=== PATIENT | male | born 1995 | race Two or more races ===

== ENCOUNTER 2024-03-27 12:29 | Emergency (ER) | payer SELFPAY ==
[2024-03-27 12:32] VITALS: BMI 29.0
[2024-03-27 13:30] VITALS: BP 133/78; PULSE 72; RESP 18; TEMP 36.9; O2SAT 99
--- NOTE | 2024-03-27 13:40 | XR_ITS ---
Examination: Knee, left , 3 views Technique: Knee AP, lateral, oblique 3 views Date and time of exam: March 27, 2024 at 1408 hours INDICATIONS: Patient slipped and fell at work today with injury to the knee, knee pain. FINDINGS: No fracture or dislocation Mild narrowing medial joint space IMPRESSION: No fracture or dislocation
--- NOTE | 2024-03-27 13:40 | XR_ITS ---
Examination: AP pelvis single view TECHNIQUE: AP portable supine pelvis single view Exam date and time: March 27, 2024 1414 hours INDICATIONS: Right iliac pelvic pain today FINDINGS: Hips and bones of the pelvis appear intact No hip dislocations No foreign bodies IMPRESSION: No fracture is identified
--- NOTE | 2024-03-27 13:41 | EDNOTE_ITS ---
<Statement entered by Kallie Bradshaw MD - 03/31/24 07:15> As co-signing physician, I was present and available for consult prn. I concur with the plan and care as documented by the midlevel provider. ED Fall Injury RME/HPI General Chief Complaint: Fall Stated Complaint: FALL AT WORK, RIGHT HIP PAIN, LEFT KNEE PAIN Time Seen by Provider: 03/27/24 13:13 Arrival date/time: 03/27/24 12:29 RME / HPI RME / HPI Narrative: 28-year-old male patient came in for evaluation regarding fall. Patient was working as a [employer] worker, accidentally fell ground-level, resulting into pain to the left anterior knee, and right iliac area. Patient is ambulatory. Incident happened about 1 hour prior to ER visit. Denies any LOC. Related Data Previous Rx's ?Medication ?Instructions ?Recorded ibuprofen 800 mg tablet 800 mg PO TID PRN pain #30 t abs 03/27/24 Allergies Allergy/AdvReac Type Severity Reaction Status Date / Time No Known Allergies Allergy Verified 03/27/24 12:31 Review of Systems Review of Systems Narrative Review of Systems: Review of system reviewed and within normal limits except mentioned in HPI ED Exam Narrative Physical exam: VITAL SIGNS: Reviewed. GENERAL APPEARANCE: Alert and interactive, follows commands, no acute distress, HEAD AND FACE: Non-traumatic. ENT: PERRL, pink conjunctivitis, eyelid no trauma, Mucous membrane moist. NECK: Supple, nontender, no nuchal rigidity. CHEST: No tenderness, no crepitus, no paradoxical movement, no retractions. LUNGS: Clear, well ventilated, symmetric, no rales, no wheezing, no ronchi, no stridor, good breath sounds bilaterally. HEART: Regular rate, regular rhythm, no murmur, no gallops. ABDOMEN: Soft, positive bowel sounds, nondistended, no guarding, nontender, no rebound, no masses, RECTAL: Deferred. GENITAL: Deferred. NEUROLOGICAL: Gross motor function intact sensory function intact, Appropriate for age. MUSCULOSKELETAL: low back nontender, full range of motion. EXTREMITIES: Left anterior knee tenderness, no deformity, full range of motion. Right iliac tenderness, no swelling no bruising SKIN: Color pink, dry, no rash, no lacerations, no abrasions, no contusions. LYMPHATICS: Deferred. Course Quality Measures none Orders Category Date Time Status XR knee LT 3V Stat Exams 03/27/24 13:40 Completed XR pelvis 1-2V Stat Exams 03/27/24 13:40 Completed Ibuprofen Tab [Motrin Tab] Med 03/27/24 13:40 Discontinued 800 mg PO X1 ONE Vital Signs Vital signs: Vital Signs Temperature 98.5 F 03/27/24 13:30 Pulse Rate 72 03/27/24 13:30 Respiratory Rate 18 03/27/24 13:30 Blood Pressure 133/78 H 03/27/24 13:30 Pulse Oximetry (%) 99 03/27/24 13:30 Oxygen Delivery Method Room Air 03/27/24 13:30 Fall MDM Narrative MDM Narrative:: 28-year-old male patient came in for evaluation regarding fall. Patient was working as a [employer] worker, accidentally fell ground-level, resulting into pain to the left anterior knee, and right iliac area. Patient is ambulatory. Incident happened about 1 hour prior to ER visit. Denies any LOC. X-ray of the iliac/pelvis, and knee, all came back normal results discussed with the patient. Patient appears nontoxic and hemodynamically stable. Patient discharged home and instructed to follow-up with primary care provider in 24 to 48 hours. Instructed to return to the emergency department immediately if worsening of symptoms Patient data External records reviewed:: None Clinical information provided by:: patient Social determinants that could affect healthcare access:: none Patient has the following chronic illnesses:: None How is presenting disease/condition affected by chronic disease/condition?: no chronic disease Evaluation data The following diagnostics were reviewed and interpreted by me:: radiology exam(s ) Lab and/or radiology exams considered but not ordered:: None Interpretation Summary: Results in MDM Medications / Prescriptions Medications or Prescriptions considered but not ordered:: None Medication administrations:: Medication Administration History Discontinued Medications Ibuprofen (Ibuprofen Tab 400 Mg Tablet) 800 mg PO X1 ONE Stop: 03/27/24 13:41 Last Admin: 03/27/24 13:53 Dose: 800 mg Documented By: YINKA Hoang Consultations Consultation(s) initiated? (list below): No Diagnosis Fall Differential Diagnosis: other (Knee pain, iliac pain, status post) Most likely diagnosis given after review of the tests above:: Knee pain, and back pain, status post fall Admission Indicated Admission indicated?: not indicated Admission Request Was there a request for admission?: No Disposition Plan Disposition Plan: Discharge Discharge Attestation Discharge Attestation: The patient was given an opportunity to ask questions and understood the discharge instructions. Discharge instructions specifically effects, indications for sooner follow up or return to the emergency department, and the expected course of current diagnosis. Patient condition: Stable Discharge Plan Plan Patient Disposition: HOME (Self Care) Disposition Comment: Stable Prescriptions/Referrals Prescriptions/Med Rec: New ibuprofen 800 mg tablet 800 mg PO TID PRN (Reason: pain) Qty: 30 0RF Referrals: No Primary/Family,Physician [Primary Care Provider] - In 1 week Problem List Clinical Impression: Acute knee pain, Iliac bone pain, Fall Patient/Caregiver Discharge Instructions Discharge Activity: activity as tolerated Education Materials: Knee Pain Additional Instructions: Thank you for the opportunity for serving you today. You are stable for discharged . You are advised to: Follow-up with your PCP in 1 to 2 days Return to ED for worsening of symptoms Increase oral fluids Take medication as prescribed Print Language: Burmese Stand Alone Forms: Tamica Award Info., Patient Portal Info Letter SOULEYMANE/JAMIL Supervising Physician SOULEYMANE/JAMIL Supervising Physician: MD Leeann
[2024-03-27] MEDS: IBUPROFEN TAB 400 MG TABLET 800 MG PO (13:53)
[2024-03-27 14:53] VITALS: BP 122/75; PULSE 75; RESP 19; TEMP 36.8; O2SAT 98
== END 2024-03-27 15:40 | disposition home or self-care (01) ==
PROVIDERS: Emergency Provider Emergency Medicine
DX: M25.562 Pain in left knee (principal); R10.2 Pelvic and perineal pain; W18.30XA Fall on same level, unspecified, initial encounter; Y93.89 Activity, other specified; Y99.0 Civilian activity done for income or pay
CPT/HCPCS: 72170; 73562; 99283; A9270